=== PATIENT | female | born 1980 | race Caucasian/White ===

== ENCOUNTER 2019-01-14 07:37 | Emergency (ER) | payer SELFPAY ==
[~2019-01-14] VITALS: Ht 162.6 cm; Wt 64.6 kg
[2019-01-14 07:43] VITALS: Ht 162.6 cm; Wt 64.6 kg
[2019-01-14] MEDS ORDERED: IBUPROFEN 800 MG TAB PO ONE (08:00)
[2019-01-14] MEDS ORDERED: IBUP-1542 PO (08:51)
--- NOTE | 2019-01-14 08:52 | ERD ---
ER Documentation Chief Complaint Chief Complaint cp x 3 months denies SOB HPI Patient is a 38-year-old female with no medical problems who presents with chest pain. The patient has had chest pain for the past 3 months. The pain is left- sided and constant. She feels palpitations. She has had no treatment as of y et. Upon review of old medical records this is the patient's first visit to the emergency department. She does not currently have a primary doctor. ROS All systems reviewed and are negative except as per history of present illness. Medications Home Meds Active Scripts Ibuprofen* (Motrin*) 600 Mg Tab, 600 MG PO Q6H PRN for PAIN AND OR ELEVATED TEMP, #30 TAB Prov:GEOVANI LATIF MD 01/14/19 PMhx/Soc Medical and Surgical Hx: pt denies Medical Hx, pt denies Surgical Hx Hx Alcohol Use: No Hx Substance Use: No Smoking Status: Never smoker FmHx Family History: coronary disease Physical Exam Vitals Vital Signs Date Temp Pulse Resp B/P (MAP) Pulse Ox O2 O2 Flow FiO2 Time Delivery Rate 01/14/19 96.8 77 18 145/83 99 07:43 (103) Physical Exam Const: No acute distress Head: Atraumatic Eyes: Normal Conjunctiva ENT: Normal External Ears, Nose and Mouth. Neck: Full range of motion. No meningismus. Resp: Clear to auscultation bilaterally Cardio: Regular rate and rhythm, no murmurs Abd: Soft, non tender, non distended. Normal bowel sounds Skin: No petechiae or rashes Back: No midline or flank tenderness Ext: No cyanosis, or edema Neur: Awake and alert Psych: Depressed affect Results 24 hrs Laboratory Tests Test 01/14/19 08:13 POC Beta HCG, Qualitative NEGATIVE Current Medications Medications Dose Sig/Whitney Start Time Status Last (Trade) Ordered Route PRN Stop Time Admin Dose Reason Admin Ibuprofen 800 mg ONCE ONCE 01/14/19 DC 01/14/19 (Motrin) PO 08:00 08:28 01/14/19 08:01 Procedures/MDM EKG read by me: Rate/Rhythm: Regular rate and rhythm at a rate of 67 Intervals: Normal Impression: No evidence of ischemia or arrhythmia Chest X-ray 1V Interpreted by me: Soft Tissue: No acute abnormalities Bones: No acute abnormalities Mediastinum/Cardiac Silhouette/Lungs: No acute abnormalities test is negative. Patient is a 38-year-old female with no cardiac risk factors who presents with chest pain. The patient was found to have a normal EKG and normal chest x-ray. test is negative. At this point I doubt acute coronary syndrome, pneumonia, pneumothorax, pulmonary embolism, or aortic dissection. The patient will be discharged but will need to follow-up with the community clinics within 24-48 hours for reevaluation. Departure Diagnosis: Primary Impression: Chest pain Chest pain type: unspecified Qualified Codes: R07.9 - Chest pain, unspecified Condition: Fair Patient Instructions: Chest Pain, Uncertain Cause [facility]errals: [facility] Usted se avendaño hecho un examen mdico de control que le indica que no est en jerod condicin que requiera tratamiento urgente en el Departamento de Emergencia. Un estudio ms profundo y el tratamiento de sierra condicin pueden esperar sin ningn riesgo hasta que usted sea atendida/o en el consultorio de sierra mdico o jerod clnica. Es responsabilidad suya arreglar jerod jerome para el seguimiento del chetan. MANEJO DE CONDICIONES NO URGENTES EN EL FUTURO 1) Si usted tiene un mdico de atencin primaria: Usted debera llamar a sierra mdico de atencin primaria antes de venir al departamento de emergencia. Despus de las horas de consultorio, sierra doctor o sierra asociado/a est disponible por telfono. El mdico o enfermero de hui en el servicio telefnico puede asesorarle por julianna medio para atender el problema, o chetan contrario se puede programar jerod jerome. 2) Si usted no tiene un mdico de atencin primaria: Llame al mdico o clnica de referencia que aparece abajo suzanne las horas de consultorio para hacer jerod jerome para que le vean. CLINICAS: [facility] [phone] [facility] 260 [phone] [facility] [phone] [place] [id number] [phone] [facility] [phone] [facility] [phone] [address] Additional Instructions: Llame al doctor MAANA y miguelina jerod JEROME PARA DENTRO DE 1-2 MCCLAIN.Dgale a la secretaria que nosotros le instruimos hacer esta jerome.Avise o llame si sierra condicin se empeora antes de la jerome. Regresa aqui si peor o no mejor. GEOVANI LATIF MD Jan 14, 2019 08:52
[2019-01-14 09:02] VITALS: BP 128/76; PULSE 78; RESP 20
== END 2019-01-14 09:03 | disposition home or self-care (01) ==
LOC: E/R 07:37
DX: R07.9 Chest pain, unspecified (principal)
CPT/HCPCS: 71045; 81025; 93005

== ENCOUNTER 2019-05-19 12:25 | Emergency (ER) | payer SELFPAY ==
[~2019-05-19] VITALS: Ht 162.6 cm; Wt 63.9 kg
[~2019-05-19 12:25] MED LIST: IBUP-1542 PO
[2019-05-19 13:08] VITALS: BP 106/59; PULSE 77; RESP 17; Ht 162.6 cm; Wt 63.9 kg
== END 2019-05-19 17:21 | disposition left against medical advice (07) ==
LOC: FTE 12:25
DX: Z53.21 Procedure and treatment not carried out due to patient leaving prior to being seen by health care provider (principal)